=== PATIENT | male | born 1995 | race Two or more races ===

== ENCOUNTER 2019-04-09 22:52 | Emergency (ER) | payer MEDICAID ==
[~2019-04-09] VITALS: Ht 182.9 cm; Wt 99.8 kg
[2019-04-09] MEDS ORDERED: diphenhdrAMINE HCL 50 MG/1 ML VL IV ONE (23:15)
[2019-04-09] MEDS ORDERED: HALOPERIDOL LACTATE 5 MG/ML INJ VIAL IM ONE (23:15)
[2019-04-09] MEDS ORDERED: LORazepam 2MG/ML-1ML VIAL IV ONE (23:15)
[2019-04-09 23:45] LABS: Basophils # (auto) 0.1 uL; Basophils % (auto) 0.3 % (0.0-2.0); Eosinophils # (auto) 0.1 uL; Eosinophils % (auto) 0.4 % (0.0-7.0); Hemoglobin 18.8 g/dL (13.5-17.5); Lymphocytes # (auto) 4.9 uL; Lymphocytes % (auto) 22.3 % (10.0-50.0); Mean Corpuscular Hemoglobin 30.2 pg (28.0-32.0); Mean Corpuscular Volume 94.6 fL (80.0-100.0); Monocytes # (auto) 1.8 uL; Monocytes % (auto) 8.1 % (0.0-12.0); Neutrophils % (auto) 68.9 % (37.0-80.0); Nucleated Red Blood Cells % 0.1 %; Platelet Count (auto) 304 10^3/uL (140-450); Red Blood Cells 6.22 10^6/uL (4.5-5.90); Red Cell Distribution Width 13.4 % (11.8-14.3); White Blood Cell 21.8 10^3/uL (4.4-10.8)
[2019-04-09 23:46] LABS: Hematocrit 58.8 % (41.0-53.0)
[2019-04-09 23:55] LABS: INR 1.14 (0.9-1.15); Partial Thromboplastin Time 27.8 sec (23.64-32.05)
[2019-04-09 23:59] LABS: Albumin 4.3 g/dL (3.4-5.0); Anion Gap 27 (5-15); Blood Alcohol < 3.0 mg/dL (0-5); Blood Urea Nitrogen 16 mg/dL (7-18); Calcium 9.8 mg/dL (8.5-10.1); Carbon Dioxide 14 mmol/L (21-32); Chloride 105 mmol/L (98-107); Glucose 154 mg/dL (74-106); Potassium 3.8 mmol/L (3.5-5.1); Sodium 146 mmol/L (136-145)
[2019-04-10 00:01] LABS: Alanine Aminotransferase 36 U/L (16-61); Aspartate Aminotransferase 33 U/L (15-37); BUN/Creatinine Ratio 7.6; GFR African American 49 mL/min; GFR Non-African American 41 mL/min; Salicylate < 1.7 mg/dL (2.8-20.0)
[2019-04-10 00:02] LABS: Acetaminophen < 2.0 ug/mL (10-30)
[2019-04-10 00:03] LABS: Alkaline Phosphatase 109 U/L (45-117); Bilirubin, Total 0.3 mg/dL (0.2-1.0); Total Protein 8.4 g/dL (6.4-8.2)
[2019-04-10] MEDS ORDERED: cefTRIAXone 1GM/50ML D5W 50 ML IV ONE ×2 (00:12→00:15)
[2019-04-10] MEDS ORDERED: LIDOCAINE 1% HCL (LOCAL ANESTH.) INJ 20ML MDV ID ONE ×2 (00:15→03:15)
[2019-04-10] MEDS ORDERED: SODIUM CHLORIDE 0.9% 1,000 ML IV ONE ×3 (00:15→02:30)
[2019-04-10] MEDS ORDERED: TETANUS-DIPTH-ACEL PERTUSSIS 0.5ML SYRG IM ONE (00:15)
[2019-04-10 00:28] LABS: Urine Bacteria FEW /hpf (None Seen); Urine Blood 2+ /uL (Negative); Urine Hyaline Cast MANY /lpf (0 - 2); Urine Mucus FEW (None Seen); Urine Specific Gravity 1.012 (1.001-1.035); Urine WBC 6 /hpf (0 - 3)
[2019-04-10 00:40] LABS: Alcohol, Urine < 3.0 mg/dL (0-5); Amphetamine Screen, Urine NEGATIVE (NEGATIVE); Barbiturate Scree,Urine NEGATIVE (NEGATIVE); Benzodiazephine Screen, Urine POSITIVE (NEGATIVE); Cannabinoid Screen, Urine NEGATIVE (NEGATIVE); Cocaine Screen, Urine NEGATIVE (NEGATIVE); Phencyclidine Screen, Urine NEGATIVE (NEGATIVE)
[2019-04-10 00:48] LABS: Opiate Scree,Urine NEGATIVE (NEGATIVE)
[2019-04-10] MEDS ORDERED: ACETAMINOPHEN 650 MG RECT SUPP PR ONE (01:45)
[2019-04-10 02:18] LABS: Lactic Acid w/Reflex 3.3 mmol/L (0.4-2.0)
[2019-04-10 02:42] LABS: Basophils # (auto) 0 uL; Basophils % (auto) 0.2 % (0.0-2.0); Eosinophils # (auto) 0 uL; Hematocrit 46.1 % (41.0-53.0); Lymphocytes # (auto) 0.5 uL; Lymphocytes % (auto) 2.7 % (10.0-50.0); Mean Corpuscular Hemoglobin 30.7 pg (28.0-32.0); Mean Corpuscular Hgb Conc. 34.8 g/dL (32.0-36.0); Mean Corpuscular Volume 88.2 fL (80.0-100.0); Monocytes # (auto) 1.7 uL; Monocytes % (auto) 8.9 % (0.0-12.0); Neutrophils # (auto) 16.8 uL; Neutrophils % (auto) 88.2 % (37.0-80.0); Nucleated Red Blood Cells % 0.1 %; Platelet Count (auto) 202 10^3/uL (140-450); Red Blood Cells 5.22 10^6/uL (4.5-5.90); Red Cell Distribution Width 12.8 % (11.8-14.3); White Blood Cell 19.1 10^3/uL (4.4-10.8)
[2019-04-10 02:52] LABS: Alanine Aminotransferase 32 U/L (16-61); Albumin 3.7 g/dL (3.4-5.0); Anion Gap 11 (5-15); Aspartate Aminotransferase 43 U/L (15-37); BUN/Creatinine Ratio 10.4; Blood Urea Nitrogen 17 mg/dL (7-18); Calcium 8.7 mg/dL (8.5-10.1); Carbon Dioxide 21 mmol/L (21-32); Chloride 109 mmol/L (98-107); GFR African American 66 mL/min; GFR Non-African American 54 mL/min; Glucose 113 mg/dL (74-106); Potassium 3.4 mmol/L (3.5-5.1); Sodium 141 mmol/L (136-145)
[2019-04-10 02:55] LABS: Alkaline Phosphatase 81 U/L (45-117); Bilirubin, Total 0.4 mg/dL (0.2-1.0); Total Protein 6.6 g/dL (6.4-8.2)
[2019-04-10 08:28] VITALS: BP 128/83
== END 2019-04-10 08:37 | disposition short-term general hospital (02) ==
LOC: ER 23:00
DX: S02.401A Maxillary fracture, unspecified side, initial encounter for closed fracture (principal); S81.811A Laceration without foreign body, right lower leg, initial encounter; S80.12XA Contusion of left lower leg, initial encounter; S80.11XA Contusion of right lower leg, initial encounter; R41.82 Altered mental status, unspecified; Y04.8XXA Assault by other bodily force, initial encounter; Y93.89 Activity, other specified; Y99.8 Other external cause status; Y92.89 Other specified places as the place of occurrence of the external cause
CPT/HCPCS: 12002; 36415; 70450; 70486; 71045; 72125; 73590; 73620; 74176; 80053; 80307; 80320; 80329; 81001; 82010; 82550; 83605; 84484; 85025; 85610; 85730; 87040; 90471; 90715; 93005; 96361; 96365; 96372; 96375; 99285; J0696; J2001; J7030